=== PATIENT | male | born 1970 | race Caucasian/White ===

== ENCOUNTER 2018-07-27 03:18 | Inpatient (IN) | payer SELFPAY ==
[2018-07-27] MEDS ORDERED: Insulin Regular, Human 100 Units/ML 3 ML Vial IVPUSH ONE (03:55)
[2018-07-27] MEDS ORDERED: Sodium Chloride 0.9% 1,000 ML IV ONE (03:55)
[2018-07-27 04:40] LABS: CHLORIDE,CL 96 mmol/L (98-107); SODIUM,NA 130 mmol/L (136-145)
[2018-07-27 04:45] LABS: ANION GAP 19.7 mmol/L (10-20)
[2018-07-27] MEDS: Sodium Chloride 0.9% with KCl 1,000 ML IV SCH ×2 (05:39→11:43)
--- NOTE | 2018-07-27 05:42 | EDM.PDOC ---
ED HPI GENERAL MEDICAL PROBLEM - General Chief Complaint: General Stated Complaint: hyperglycemia,chest tightness Time Seen by Provider: 07/27/18 03:40 Source of Information: Reports: Patient History Limitations: Reports: No Limitations - History of Present Illness INITIAL COMMENTS - FREE TEXT/NARRATIVE: Pt. presents to ER with complaints of fatigue and elevated blood glucose. States that his blood sugar was normal yesterday morning at 130mg/dl. He states that he has been taking his insulin. He complains that he began feeling thirsty last evening and woke up with nausea and vomiting. He states that he last A1C was 12. He is on 70/30 twice daily. He states that he moved here recently from [place], [place]. He also stated that he was type 1 diabetic, but after reviewing his clinic chart, it was noted that he was type 2. The chart also started that he had been on cardiac rehab. After questioning him regarding this, he admitted he had a history of IN previously. He started earlier he had no other PMH. He states that he was experiencing some chest pain this AM as well. It is located in his anterior chest, is respirophasic, and worse with movement. Denies radiation into jaw, arms, neck or back. Onset Date: 07/26/18 Location: Reports: Chest, Generalized Associated Symptoms: Reports: Malaise, Nausea/Vomiting Chest Pain Score (Numeric/FACES): 9 - Related Data Allergies Allergy/AdvReac Type Severity Reaction Status Date / Time bee venom protein (honey bee) Allergy Anaphylactic Verified 07/27/18 03:57 Shock No Known Drug Allergies Allergy Other Verified 07/27/18 03:57 Home Meds: Home Meds Gabapentin [Neurontin] 300 mg PO TID 07/27/18 [History] Insulin NPH/Insulin Reg,Human [HumuLIN 70-30] 20 units SQ BIDMEALS 07/27/18 [ History] Past Medical History Cardiovascular History: Reports: High Cholesterol Endocrine/Metabolic History: Reports: Diabetes, Type I - Past Surgical History Male Surgical History: Reports: Other (See Below) Other Male Surgeries/Procedures: 3/4 of scrotum removed due to infection. Social & Family History - Tobacco Use Smoking Status *Q: Current Every Day Smoker Years of Tobacco use: 20 Packs/Tins Daily: 0.5 - Recreational Drug Use Recreational Drug Use: No ED ROS GENERAL - Review of Systems Review Of Systems: See Below Constitutional: Reports: Malaise, Fatigue HEENT: Reports: No Symptoms Respiratory: Reports: Pleuritic Chest Pain Cardiovascular: Reports: Chest Pain Endocrine: Reports: No Symptoms GI/Abdominal: Reports: No Symptoms : Reports: No Symptoms Musculoskeletal: Reports: No Symptoms Skin: Reports: No Symptoms Neurological: Reports: No Symptoms Psychiatric: Reports: No Symptoms Hematologic/Lymphatic: Reports: No Symptoms Immunologic: Reports: No Symptoms ED EXAM, GENERAL - Physical Exam Exam: See Below Exam Limited By: No Limitations General Appearance: Alert, WD/WN, No Apparent Distress Eye Exam: Bilateral Eye: EOMI, Normal Fundi, Normal Inspection, PERRL Throat/Mouth: Normal Inspection, Normal Lips, Normal Teeth, Normal Gums, Normal Oropharynx, Normal Voice, No Airway Compromise Head: Atraumatic, Normocephalic Neck: Normal Inspection, Supple, Non-Tender, Full Range of Motion Respiratory/Chest: No Respiratory Distress, Lungs Clear, Normal Breath Sounds, No Accessory Muscle Use, Chest Non-Tender Cardiovascular: Normal Peripheral Pulses, Regular Rate, Rhythm, No Edema, No Gallop, No JVD, No Murmur, No Rub GI/Abdominal: Normal Bowel Sounds, Soft, Non-Tender, No Organomegaly, No Distention, No Abnormal Bruit, No Mass (Male) Exam: Deferred Rectal (Males) Exam: Deferred Back Exam: Normal Inspection, Full Range of Motion, NT Extremities: Normal Inspection, Normal Range of Motion, Non-Tender, Normal Capillary Refill, No Pedal Edema Neurological: Alert, Oriented, CN II-XII Intact, Normal Cognition, Normal Gait, Normal Reflexes, No Motor/Sensory Deficits Psychiatric: Normal Affect, Normal Mood Skin Exam: Warm, Dry, Intact, Normal Color, No Rash Lymphatic: No Adenopathy EKG INTERPRETATION Rhythm: NSR Orion: Normal P-Wave: Present QRS: Normal ST-T: Normal QT: Normal Course - Vital Signs Last Recorded V/S: Last Vital Signs Temp 36.6 C 07/27/18 03:31 Pulse 113 H 07/27/18 03:31 Resp 18 07/27/18 03:31 BP 157/98 H 07/27/18 03:31 Pulse Ox 97 07/27/18 03:31 - Orders/Labs/Meds Orders: Active Orders 24 hr Category Date Time Status Patient Status [ADT] Routine ADT 07/27/18 05:06 Active Blood Glucose Check, Bedside [RC] ONETIME Care 07/27/18 04:43 Active EKG Documentation Completion [RC] STAT Care 07/27/18 03:53 Active Insulin Regular, Human [HumuLIN R] 100 unit Med 07/27/18 05:15 Active Sodium Chloride 0.9% [Normal Saline] 99 ml IV TITRATE Sodium Chloride 0.9% [Saline Flush] Med 07/27/18 03:53 Active 10 ml FLUSH ASDIRECTED PRN Sodium Chloride 0.9% with KCl [Normal Saline with 40 Med 07/27/18 05:15 Active mEq KCl] 1,000 ml IV ASDIRECTED Peripheral IV Insertion Adult [OM.PC] Routine Oth 07/27/18 03:54 Ordered Medication Orders Insulin Human Regular 100 unit (/ Sodium Chloride) 100 mls @ 10.2 mls/hr IV TITRATE WILFRED; Protocol Last Admin: 07/27/18 05:43 Dose: 0.1 units/kg/hr, 10.2 mls/hr Potassium Chloride/Sodium Chloride (Normal Saline With 40 Meq Kcl) 1,000 mls @ 150 mls/hr IV ASDIRECTED WILFRED Last Admin: 07/27/18 05:39 Dose: 150 mls/hr Sodium Chloride (Saline Flush) 10 ml FLUSH ASDIRECTED PRN PRN Reason: Keep Vein Open Labs: Laboratory Tests 07/27/18 07/27/18 07/27/18 Range/Units 03:42 03:43 03:43 WBC (4.0-10.0) x10^3/uL RBC (4.5-6.0) x10^6/uL Hgb (14.0-18.0) g/dL Hct (40.0-52.0) % MCV (78.0-93.0) fL MCH (26.0-32.0) pg MCHC (32.0-36.0) g/dL RDW Coeff of Myrna (10.0-15.0) % Plt Count (130-400) x10^3/uL Neut % (Auto) (50.0-80.0) % Lymph % (Auto) (25.0-50.0) % [place] % (Auto) (2.0-11.0) % Eos % (Auto) (0.0-4.0) % Baso % (Auto) (0.2-1.2) % PT (9.6-11.4) SEC INR (2.0-3.5) POC ABG pH (7.35-7.45) POC ABG pCO2 (35-45) mmHG POC ABG pO2 (80-105) mmHG POC ABG HCO3 (22-26) mmol/L POC ABG Total CO2 (23-27) mmol/L POC ABG O2 Sat (95-98) % POC ABG Base Excess (-2-3) mmol/L POC FiO2 Sodium (136-145) mmol/L Potassium (3.5-5.1) mmol/L Chloride (98-107) mmol/L Carbon Dioxide (21-32) mmol/L Anion Gap (10-20) mmol/L BUN (7-18) mg/dL Creatinine (0.70-1.30) mg/dL Est Cr Clr Drug Dosing mL/min Estimated GFR (MDRD) Glucose (74-106) mg/dL POC Glucose > 500 H* (74-106) mg/dL Lactic Acid (0.4-2.0) mmol/L Calcium (8.5-10.1) mg/dL Corrected Calcium (8.5-10.1) mg/dL Phosphorus (2.6-4.7) mg/dL Magnesium (1.8-2.4) mg/dL Total Bilirubin (0.2-1.0) mg/dL AST (15-37) U/L ALT (16-63) U/L Alkaline Phosphatase (46-116) U/L Troponin I (<=0.056) ng/mL C-Reactive Protein (<=0.9) mg/dL Total Protein (6.4-8.2) g/dL Albumin (3.4-5.0) g/dL Globulin Albumin/Globulin Ratio POC Result Comm Urine Color Yellow (YELLOW) Urine Appearance Clear (CLEAR) Urine pH 5.5 (5.0-8.0) Ur Specific West <=1.005 Urine Protein Negative (NEGATIVE) mg/dL Urine Glucose (UA) 500 H (NEGATIVE) mg/dL Urine Ketones Negative (NEGATIVE) mg/dL Urine Occult Blood Negative (NEGATIVE) Urine Nitrite Negative (NEGATIVE) Urine Bilirubin Negative (NEGATIVE) Urine Urobilinogen 0.2 (0.2) EU/dL Ur Leukocyte Esterase Negative (NEGATIVE) Urine RBC 0-5 (NOT SEEN) /HPF Urine WBC 0-5 (NOT SEEN) /HPF Ur Squamous Epith Cells Not seen (NEGATIVE) /HPF Urine Bacteria Not seen (NEGATIVE) /HPF Urine Mucus Not seen (NEGATIVE) /LPF Urine Opiates Screen Negative (NEAGTIVE) Ur Buprenorphine Scrn Negative (NEGATIVE) Ur Oxycodone Screen Negative (NEGATIVE) Urine Methadone Screen Negative (NEGATIVE) Ur Barbiturates Screen Negative (NEGATIVE) Ur Tricyclics Screen Negative (NEGATIVE) Ur Amphetamine Screen Negative (NEGATIVE) U Methamphetamines Scrn Negative (NEGATIVE) Urine MDMA Screen Negative (NEGATIVE) U Benzodiazepines Scrn Negative (NEGATIVE) U Cocaine Metab Screen Negative (NEGATIVE) U Marijuana (THC) Screen Negative (NEGATIVE) 07/27/18 07/27/18 07/27/18 Range/Units 03:54 03:54 03:54 WBC 11.1 H (4.0-10.0) x10^3/uL RBC 5.76 (4.5-6.0) x10^6/uL Hgb 17.6 (14.0-18.0) g/dL Hct 48.7 (40.0-52.0) % MCV 84.5 (78.0-93.0) fL MCH 30.6 (26.0-32.0) pg MCHC 36.1 H (32.0-36.0) g/dL RDW Coeff of Myrna 13.1 (10.0-15.0) % Plt Count 257 (130-400) x10^3/uL Neut % (Auto) 74.6 (50.0-80.0) % Lymph % (Auto) 15.9 L (25.0-50.0) % [place] % (Auto) 7.7 (2.0-11.0) % Eos % (Auto) 1.4 (0.0-4.0) % Baso % (Auto) 0.4 (0.2-1.2) % PT 9.9 (9.6-11.4) SEC INR 0.9 L (2.0-3.5) POC ABG pH (7.35-7.45) POC ABG pCO2 (35-45) mmHG POC ABG pO2 (80-105) mmHG POC ABG HCO3 (22-26) mmol/L POC ABG Total CO2 (23-27) mmol/L POC ABG O2 Sat (95-98) % POC ABG Base Excess (-2-3) mmol/L POC FiO2 Sodium 130 L (136-145) mmol/L Potassium 3.7 (3.5-5.1) mmol/L Chloride 96 L (98-107) mmol/L Carbon Dioxide 18 L (21-32) mmol/L Anion Gap 19.7 (10-20) mmol/L BUN 11 (7-18) mg/dL Creatinine 1.6 H (0.70-1.30) mg/dL Est Cr Clr Drug Dosing 70.07 mL/min Estimated GFR (MDRD) 47 Glucose 666 H* (74-106) mg/dL POC Glucose (74-106) mg/dL Lactic Acid (0.4-2.0) mmol/L Calcium 9.3 (8.5-10.1) mg/dL Corrected Calcium 9.78 (8.5-10.1) mg/dL Phosphorus 3.1 (2.6-4.7) mg/dL Magnesium 1.7 L (1.8-2.4) mg/dL Total Bilirubin 0.4 (0.2-1.0) mg/dL AST 14 L (15-37) U/L ALT 30 (16-63) U/L Alkaline Phosphatase 86 (46-116) U/L Troponin I < 0.017 (<=0.056) ng/mL C-Reactive Protein 0.8 (<=0.9) mg/dL Total Protein 7.5 (6.4-8.2) g/dL Albumin 3.4 (3.4-5.0) g/dL Globulin 4.1 Albumin/Globulin Ratio 0.83 POC Result Comm Urine Color (YELLOW) Urine Appearance (CLEAR) Urine pH (5.0-8.0) Ur Specific West Urine Protein (NEGATIVE) mg/dL Urine Glucose (UA) (NEGATIVE) mg/dL Urine Ketones (NEGATIVE) mg/dL Urine Occult Blood (NEGATIVE) Urine Nitrite (NEGATIVE) Urine Bilirubin (NEGATIVE) Urine Urobilinogen (0.2) EU/dL Ur Leukocyte Esterase (NEGATIVE) Urine RBC (NOT SEEN) /HPF Urine WBC (NOT SEEN) /HPF Ur Squamous Epith Cells (NEGATIVE) /HPF Urine Bacteria (NEGATIVE) /HPF Urine Mucus (NEGATIVE) /LPF Urine Opiates Screen (NEAGTIVE) Ur Buprenorphine Scrn (NEGATIVE) Ur Oxycodone Screen (NEGATIVE) Urine Methadone Screen (NEGATIVE) Ur Barbiturates Screen (NEGATIVE) Ur Tricyclics Screen (NEGATIVE) Ur Amphetamine Screen (NEGATIVE) U Methamphetamines Scrn (NEGATIVE) Urine MDMA Screen (NEGATIVE) U Benzodiazepines Scrn (NEGATIVE) U Cocaine Metab Screen (NEGATIVE) U Marijuana (THC) Screen (NEGATIVE) 07/27/18 07/27/18 Range/Units 03:54 04:39 WBC (4.0-10.0) x10^3/uL RBC (4.5-6.0) x10^6/uL Hgb (14.0-18.0) g/dL Hct (40.0-52.0) % MCV (78.0-93.0) fL MCH (26.0-32.0) pg MCHC (32.0-36.0) g/dL RDW Coeff of Myrna (10.0-15.0) % Plt Count (130-400) x10^3/uL Neut % (Auto) (50.0-80.0) % Lymph % (Auto) (25.0-50.0) % [place] % (Auto) (2.0-11.0) % Eos % (Auto) (0.0-4.0) % Baso % (Auto) (0.2-1.2) % PT (9.6-11.4) SEC INR (2.0-3.5) POC ABG pH 7.298 L* (7.35-7.45) POC ABG pCO2 36 (35-45) mmHG POC ABG pO2 80 (80-105) mmHG POC ABG HCO3 18 L (22-26) mmol/L POC ABG Total CO2 19 L (23-27) mmol/L POC ABG O2 Sat 94 L (95-98) % POC ABG Base Excess -9 L (-2-3) mmol/L POC FiO2 0.21 Sodium (136-145) mmol/L Potassium (3.5-5.1) mmol/L Chloride (98-107) mmol/L Carbon Dioxide (21-32) mmol/L Anion Gap (10-20) mmol/L BUN (7-18) mg/dL Creatinine (0.70-1.30) mg/dL Est Cr Clr Drug Dosing mL/min Estimated GFR (MDRD) Glucose (74-106) mg/dL POC Glucose (74-106) mg/dL Lactic Acid 7.8 H* (0.4-2.0) mmol/L Calcium (8.5-10.1) mg/dL Corrected Calcium (8.5-10.1) mg/dL Phosphorus (2.6-4.7) mg/dL Magnesium (1.8-2.4) mg/dL Total Bilirubin (0.2-1.0) mg/dL AST (15-37) U/L ALT (16-63) U/L Alkaline Phosphatase (46-116) U/L Troponin I (<=0.056) ng/mL C-Reactive Protein (<=0.9) mg/dL Total Protein (6.4-8.2) g/dL Albumin (3.4-5.0) g/dL Globulin Albumin/Globulin Ratio POC Result Comm Called critical res Urine Color (YELLOW) Urine Appearance (CLEAR) Urine pH (5.0-8.0) Ur Specific West Urine Protein (NEGATIVE) mg/dL Urine Glucose (UA) (NEGATIVE) mg/dL Urine Ketones (NEGATIVE) mg/dL Urine Occult Blood (NEGATIVE) Urine Nitrite (NEGATIVE) Urine Bilirubin (NEGATIVE) Urine Urobilinogen (0.2) EU/dL Ur Leukocyte Esterase (NEGATIVE) Urine RBC (NOT SEEN) /HPF Urine WBC (NOT SEEN) /HPF Ur Squamous Epith Cells (NEGATIVE) /HPF Urine Bacteria (NEGATIVE) /HPF Urine Mucus (NEGATIVE) /LPF Urine Opiates Screen (NEAGTIVE) Ur Buprenorphine Scrn (NEGATIVE) Ur Oxycodone Screen (NEGATIVE) Urine Methadone Screen (NEGATIVE) Ur Barbiturates Screen (NEGATIVE) Ur Tricyclics Screen (NEGATIVE) Ur Amphetamine Screen (NEGATIVE) U Methamphetamines Scrn (NEGATIVE) Urine MDMA Screen (NEGATIVE) U Benzodiazepines Scrn (NEGATIVE) U Cocaine Metab Screen (NEGATIVE) U Marijuana (THC) Screen (NEGATIVE) Meds: Medications Generic Name Dose Route Start Last Admin Trade Name Freq PRN Reason Stop Dose Admin Insulin Human Regular 100 unit 100 mls @ 10.2 mls/hr 07/27/18 05:15 07/27/18 05:43 / Sodium Chloride IV 0.1 units/kg/hr TITRATE WILFRED 10.2 mls/hr Administration Protocol 0.1 UNITS/KG/HR Potassium Chloride/Sodium Chloride 1,000 mls @ 150 mls/hr 07/27/18 05:15 05:39 Normal Saline With 40 Meq Kcl IV 150 mls/hr ASDIRECTED WILFRED Administration Sodium Chloride 10 ml 07/27/18 03:53 Saline Flush FLUSH ASDIRECTED PRN Keep Vein Open Discontinued Medications Generic Name Dose Route Start Last Admin Trade Name Freq PRN Reason Stop Dose Admin Sodium Chloride 1,000 mls @ 1,000 mls/hr 07/27/18 03:55 07/27/18 03:55 Normal Saline IV 07/27/18 04:54 1,000 mls/hr .BOLUS ONE Administration Insulin Human Regular 10 unit 07/27/18 03:55 07/27/18 04:03 Humulin R IVPUSH 07/27/18 03:56 10 units ONETIME ONE Administration Ondansetron HCl 4 mg 07/27/18 05:58 Zofran IVPUSH 07/27/18 05:59 ONETIME ONE - Re-Assessments/Exams Free Text/Narrative Re-Assessment/Exam: 07/27/18 05:48 IV access was established. He was given 1L of NS and 10 units of regular insulin. He was started on an insulin drip at 0.1mg/kg/hr. Initial blood glucose was 666mg/dl. His K+ was 3.7. In anticipation of insulin induced hypokalemia, the pt. was started on NS with 40mEq of KCl at 150ml/hour. Departure - Departure Time of Disposition: 05:52 Disposition: Admitted As Inpatient 66 Clinical Impression: DKA (diabetic ketoacidoses) - Discharge Information - Problem List Review Problem List Initiated/Reviewed/Updated: Yes - My Orders Last 24 Hours: My Active Orders 07/27/18 03:53 EKG Documentation Completion [RC] STAT Sodium Chloride 0.9% [Saline Flush] 10 ml FLUSH ASDIRECTED PRN 07/27/18 03:54 Peripheral IV Insertion Adult [OM.PC] Routine 07/27/18 04:43 Blood Glucose Check, Bedside [RC] ONETIME 07/27/18 05:06 Patient Status [ADT] Routine 07/27/18 05:15 Insulin Regular, Human [HumuLIN R] 100 unit Sodium Chloride 0.9% [Normal Saline] 99 ml IV TITRATE Sodium Chloride 0.9% with KCl [Normal Saline with 40 mEq KCl] 1,000 ml IV ASDIRECTED - Assessment/Plan Last 24 Hours: My Active Orders 07/27/18 03:53 EKG Documentation Completion [RC] STAT Sodium Chloride 0.9% [Saline Flush] 10 ml FLUSH ASDIRECTED PRN 07/27/18 03:54 Peripheral IV Insertion Adult [OM.PC] Routine 07/27/18 04:43 Blood Glucose Check, Bedside [RC] ONETIME 07/27/18 05:06 Patient Status [ADT] Routine 07/27/18 05:15 Insulin Regular, Human [HumuLIN R] 100 unit Sodium Chloride 0.9% [Normal Saline] 99 ml IV TITRATE Sodium Chloride 0.9% with KCl [Normal Saline with 40 mEq KCl] 1,000 ml IV ASDIRECTED Plan: Pt. meets acute criteria for admission. He will be admitted to med/surg. Dr. Garnett will admit. He is an unassigned patient. Bedside glucose every 2 hours. His 1 hour repeat was still greater than 500mg/dl. Lovenox for DVT prophylaxis. Will continue tele due to cardiac history and complaints of chest pain. Will attempt to obtain medical records from [place], [place]. Will treat nausea with zofran. He is a code 1.
[2018-07-27] MEDS ORDERED: Ondansetron 4 MG/2 ML SDV IVPUSH ONE (05:58)
[2018-07-27 11:24] LABS: CHLORIDE,CL 105 mmol/L (98-107); SODIUM,NA 136 mmol/L (136-145)
[2018-07-27 11:25] LABS: ANION GAP 9.4 mmol/L (10-20)
[2018-07-27] MEDS: Enoxaparin 40 MG/0.4 ML Syringe SUBCUT SCH (11:38)
--- NOTE | 2018-07-27 14:19 | PCM.HP ---
H&P History of Present Illness - General Date of Service: 07/27/18 Admit Problem/Dx: Admission Diagnosis/Problem Admission Diagnosis/Problem Diabetic ketoacidosis - History of Present Illness Initial Comments - Free Text/Narative: History: Patient was admitted late last night with weakness. Afebrile. No infection seen by CRP or basic exam. Sugar was quite high at 600s. Mild acidosis pH 7.3 anion gap mildly elevated. No gross ketones in urine. Admitted for DKA started on insulin drip plus saline bolus. Patient's unsure of trigger for this. He states he hasn't missed any insulin recently. He states his sugars usually run low to mid 100s at home, however the same time he states his last A1c was 12+ less than three months ago. He describes possible mild cardiac history. He denies ever having a left heart cath. Subsequently totally may have had a small heart attack at some time and that he may have had some sort of follow-up stress test or similar which appeared normal. EKG and trop were normal last night home meds: 70/30 20U bid Gabapentin NKDA SH: Smokes 1/2ppd, was living in [place] then [place] and now [place], doesn't have local doc yet. Family history: Noncontributory Review of systems. Denies fever denies vomiting denies abdominal pain. Was having very brief chest pain which is gone now. Denies dyspnea denies dysuria Physical exam: Blood pressure 150/100 pulse 100. Afebrile. Alert oriented sitting in bed in no acute distress. Heart and lungs to auscultation abdomen soft nontender extremities warm well perfused without edema. Assessment and plan. Mild DKA. Has resolved with brief course of insulin and IV fluids here. Blood sugars less than 200, acidemia has resolved as well. Exact etiology is unclear. Could be noncompliance versus underdosing of insulin. I don't see any cardiac, acute abdomen or acute infectious contribution at this time. We will stop IV fluids stop IV insulin. We'll resume home 7030 dose to see where get with his blood sugars and adjust accordingly. He'll need to follow-up a primary clinic. Sugars sound uncontrolled at baseline if his last A1c was greater than 12. Monitor his hypertension for now. Again needs to follow-up in clinic for fasting blood work etc. He does still smoke as well. Chest Pain Score (Numeric/FACES): 8 - Related Data Allergies/Adverse Reactions: Allergies Allergy/AdvReac Type Severity Reaction Status Date / Time bee venom protein (honey bee) Allergy Severe Anaphylactic Verified 07/27/18 09: 07 Shock No Known Drug Allergies Allergy Other Verified 07/27/18 03:57 Home Medications: Home Meds Gabapentin [Neurontin] 300 mg PO TID 07/27/18 [History] Insulin NPH/Insulin Reg,Human [HumuLIN 70-30] 20 units SQ BIDMEALS 07/27/18 [ History] Past Medical History Cardiovascular History: Reports: High Cholesterol Endocrine/Metabolic History: Reports: Diabetes, Type I - Past Surgical History Male Surgical History: Reports: Other (See Below) Other Male Surgeries/Procedures: 3/ of scrotum removed due to infection. Social & Family History - Tobacco Use Smoking Status *Q: Former Smoker Years of Tobacco use: 20 Packs/Tins Daily: 0.5 Used Tobacco, but Quit: No Tobacco Use Comment: vape use Second Hand Smoke Exposure: Yes - Caffeine Use Caffeine Use: Reports: None - Recreational Drug Use Recreational Drug Use: No H&P Review of Systems - Review of Systems: Review Of Systems: See Below Exam - Exam Exam: See Below - Vital Signs Vital Signs: Last Vital Signs Temp 36.4 C 07/27/18 13:07 Pulse 84 07/27/18 13:07 Resp 16 07/27/18 13:07 BP 143/87 H 07/27/18 13:07 Pulse Ox 98 07/27/18 13:07 Weight: 102.25 kg - Patient Data Lab Results Last 24 hrs: Laboratory Results - last 24 hr 07/27/18 07/27/18 07/27/18 Range/Units 03:42 03:43 03:43 WBC (4.0-10.0) x10^3/uL RBC (4.5-6.0) x10^6/uL Hgb (14.0-18.0) g/dL Hct (40.0-52.0) % MCV (78.0-93.0) fL MCH (26.0-32.0) pg MCHC (32.0-36.0) g/dL RDW Coeff of Myrna (10.0-15.0) % Plt Count (130-400) x10^3/uL Neut % (Auto) (50.0-80.0) % Lymph % (Auto) (25.0-50.0) % Carter % (Auto) (2.0-11.0) % Eos % (Auto) (0.0-4.0) % Baso % (Auto) (0.2-1.2) % PT (9.6-11.4) SEC INR (2.0-3.5) POC ABG pH (7.35-7.45) POC ABG pCO2 (35-45) mmHG POC ABG pO2 (80-105) mmHG POC ABG HCO3 (22-26) mmol/L POC ABG Total CO2 (23-27) mmol/L POC ABG O2 Sat (95-98) % POC ABG Base Excess (-2-3) mmol/L POC FiO2 Sodium (136-145) mmol/L Potassium (3.5-5.1) mmol/L Chloride (98-107) mmol/L Carbon Dioxide (21-32) mmol/L Anion Gap (10-20) mmol/L BUN (7-18) mg/dL Creatinine (0.70-1.30) mg/dL Est Cr Clr Drug Dosing mL/min Estimated GFR (MDRD) Glucose (74-106) mg/dL POC Glucose > 500 H* (74-106) mg/dL Lactic Acid (0.4-2.0) mmol/L Calcium (8.5-10.1) mg/dL Corrected Calcium (8.5-10.1) mg/dL Phosphorus (2.6-4.7) mg/dL Magnesium (1.8-2.4) mg/dL Total Bilirubin (0.2-1.0) mg/dL AST (15-37) U/L ALT (16-63) U/L Alkaline Phosphatase (46-116) U/L Troponin I (<=0.056) ng/mL C-Reactive Protein (<=0.9) mg/dL Total Protein (6.4-8.2) g/dL Albumin (3.4-5.0) g/dL Globulin Albumin/Globulin Ratio POC Result Comm Urine Color Yellow (YELLOW) Urine Appearance Clear (CLEAR) Urine pH 5.5 (5.0-8.0) Ur Specific [place] <=1.005 Urine Protein Negative (NEGATIVE) mg/dL Urine Glucose (UA) 500 H (NEGATIVE) mg/dL Urine Ketones Negative (NEGATIVE) mg/dL Urine Occult Blood Negative (NEGATIVE) Urine Nitrite Negative (NEGATIVE) Urine Bilirubin Negative (NEGATIVE) Urine Urobilinogen 0.2 (0.2) EU/dL Ur Leukocyte Esterase Negative (NEGATIVE) Urine RBC 0-5 (NOT SEEN) /HPF Urine WBC 0-5 (NOT SEEN) /HPF Ur Squamous Epith Cells Not seen (NEGATIVE) /HPF Urine Bacteria Not seen (NEGATIVE) /HPF Urine Mucus Not seen (NEGATIVE) /LPF Urine Opiates Screen Negative (NEAGTIVE) Ur Buprenorphine Scrn Negative (NEGATIVE) Ur Oxycodone Screen Negative (NEGATIVE) Urine Methadone Screen Negative (NEGATIVE) Ur Barbiturates Screen Negative (NEGATIVE) Ur Tricyclics Screen Negative (NEGATIVE) Ur Amphetamine Screen Negative (NEGATIVE) U Methamphetamines Scrn Negative (NEGATIVE) Urine MDMA Screen Negative (NEGATIVE) U Benzodiazepines Scrn Negative (NEGATIVE) U Cocaine Metab Screen Negative (NEGATIVE) U Marijuana (THC) Screen Negative (NEGATIVE) 07/27/18 07/27/18 07/27/18 Range/Units 03:54 03:54 03:54 WBC 11.1 H (4.0-10.0) x10^3/uL RBC 5.76 (4.5-6.0) x10^6/uL Hgb 17.6 (14.0-18.0) g/dL Hct 48.7 (40.0-52.0) % MCV 84.5 (78.0-93.0) fL MCH 30.6 (26.0-32.0) pg MCHC 36.1 H (32.0-36.0) g/dL RDW Coeff of Myrna 13.1 (10.0-15.0) % Plt Count 257 (130-400) x10^3/uL Neut % (Auto) 74.6 (50.0-80.0) % Lymph % (Auto) 15.9 L (25.0-50.0) % Carter % (Auto) 7.7 (2.0-11.0) % Eos % (Auto) 1.4 (0.0-4.0) % Baso % (Auto) 0.4 (0.2-1.2) % PT 9.9 (9.6-11.4) SEC INR 0.9 L (2.0-3.5) POC ABG pH (7.35-7.45) POC ABG pCO2 (35-45) mmHG POC ABG pO2 (80-105) mmHG POC ABG HCO3 (22-26) mmol/L POC ABG Total CO2 (23-27) mmol/L POC ABG O2 Sat (95-98) % POC ABG Base Excess (-2-3) mmol/L POC FiO2 Sodium 130 L (136-145) mmol/L Potassium 3.7 (3.5-5.1) mmol/L Chloride 96 L (98-107) mmol/L Carbon Dioxide 18 L (21-32) mmol/L Anion Gap 19.7 (10-20) mmol/L BUN 11 (7-18) mg/dL Creatinine 1.6 H (0.70-1.30) mg/dL Est Cr Clr Drug Dosing 70.07 mL/min Estimated GFR (MDRD) 47 Glucose 666 H* (74-106) mg/dL POC Glucose (74-106) mg/dL Lactic Acid (0.4-2.0) mmol/L Calcium 9.3 (8.5-10.1) mg/dL Corrected Calcium 9.78 (8.5-10.1) mg/dL Phosphorus 3.1 (2.6-4.7) mg/dL Magnesium 1.7 L (1.8-2.4) mg/dL Total Bilirubin 0.4 (0.2-1.0) mg/dL AST 14 L (15-37) U/L ALT 30 (16-63) U/L Alkaline Phosphatase 86 (46-116) U/L Troponin I < 0.017 (<=0.056) ng/mL C-Reactive Protein 0.8 (<=0.9) mg/dL Total Protein 7.5 (6.4-8.2) g/dL Albumin 3.4 (3.4-5.0) g/dL Globulin 4.1 Albumin/Globulin Ratio 0.83 POC Result Comm Urine Color (YELLOW) Urine Appearance (CLEAR) Urine pH (5.0-8.0) Ur Specific [place] Urine Protein (NEGATIVE) mg/dL Urine Glucose (UA) (NEGATIVE) mg/dL Urine Ketones (NEGATIVE) mg/dL Urine Occult Blood (NEGATIVE) Urine Nitrite (NEGATIVE) Urine Bilirubin (NEGATIVE) Urine Urobilinogen (0.2) EU/dL Ur Leukocyte Esterase (NEGATIVE) Urine RBC (NOT SEEN) /HPF Urine WBC (NOT SEEN) /HPF Ur Squamous Epith Cells (NEGATIVE) /HPF Urine Bacteria (NEGATIVE) /HPF Urine Mucus (NEGATIVE) /LPF Urine Opiates Screen (NEAGTIVE) Ur Buprenorphine Scrn (NEGATIVE) Ur Oxycodone Screen (NEGATIVE) Urine Methadone Screen (NEGATIVE) Ur Barbiturates Screen (NEGATIVE) Ur Tricyclics Screen (NEGATIVE) Ur Amphetamine Screen (NEGATIVE) U Methamphetamines Scrn (NEGATIVE) Urine MDMA Screen (NEGATIVE) U Benzodiazepines Scrn (NEGATIVE) U Cocaine Metab Screen (NEGATIVE) U Marijuana (THC) Screen (NEGATIVE) 07/27/18 07/27/18 07/27/18 Range/Units 03:54 04:39 05:35 WBC (4.0-10.0) x10^3/uL RBC (4.5-6.0) x10^6/uL Hgb (14.0-18.0) g/dL Hct (40.0-52.0) % MCV (78.0-93.0) fL MCH (26.0-32.0) pg MCHC (32.0-36.0) g/dL RDW Coeff of Myrna (10.0-15.0) % Plt Count (130-400) x10^3/uL Neut % (Auto) (50.0-80.0) % Lymph % (Auto) (25.0-50.0) % Carter % (Auto) (2.0-11.0) % Eos % (Auto) (0.0-4.0) % Baso % (Auto) (0.2-1.2) % PT (9.6-11.4) SEC INR (2.0-3.5) POC ABG pH 7.298 L* (7.35-7.45) POC ABG pCO2 36 (35-45) mmHG POC ABG pO2 80 (80-105) mmHG POC ABG HCO3 18 L (22-26) mmol/L POC ABG Total CO2 19 L (23-27) mmol/L POC ABG O2 Sat 94 L (95-98) % POC ABG Base Excess -9 L (-2-3) mmol/L POC FiO2 0.21 Sodium (136-145) mmol/L Potassium (3.5-5.1) mmol/L Chloride (98-107) mmol/L Carbon Dioxide (21-32) mmol/L Anion Gap (10-20) mmol/L BUN (7-18) mg/dL Creatinine (0.70-1.30) mg/dL Est Cr Clr Drug Dosing mL/min Estimated GFR (MDRD) Glucose (74-106) mg/dL POC Glucose > 500 H* (74-106) mg/dL Lactic Acid 7.8 H* (0.4-2.0) mmol/L Calcium (8.5-10.1) mg/dL Corrected Calcium (8.5-10.1) mg/dL Phosphorus (2.6-4.7) mg/dL Magnesium (1.8-2.4) mg/dL Total Bilirubin (0.2-1.0) mg/dL AST (15-37) U/L ALT (16-63) U/L Alkaline Phosphatase (46-116) U/L Troponin I (<=0.056) ng/mL C-Reactive Protein (<=0.9) mg/dL Total Protein (6.4-8.2) g/dL Albumin (3.4-5.0) g/dL Globulin Albumin/Globulin Ratio POC Result Comm Called critical res Urine Color (YELLOW) Urine Appearance (CLEAR) Urine pH (5.0-8.0) Ur Specific [place] Urine Protein (NEGATIVE) mg/dL Urine Glucose (UA) (NEGATIVE) mg/dL Urine Ketones (NEGATIVE) mg/dL Urine Occult Blood (NEGATIVE) Urine Nitrite (NEGATIVE) Urine Bilirubin (NEGATIVE) Urine Urobilinogen (0.2) EU/dL Ur Leukocyte Esterase (NEGATIVE) Urine RBC (NOT SEEN) /HPF Urine WBC (NOT SEEN) /HPF Ur Squamous Epith Cells (NEGATIVE) /HPF Urine Bacteria (NEGATIVE) /HPF Urine Mucus (NEGATIVE) /LPF Urine Opiates Screen (NEAGTIVE) Ur Buprenorphine Scrn (NEGATIVE) Ur Oxycodone Screen (NEGATIVE) Urine Methadone Screen (NEGATIVE) Ur Barbiturates Screen (NEGATIVE) Ur Tricyclics Screen (NEGATIVE) Ur Amphetamine Screen (NEGATIVE) U Methamphetamines Scrn (NEGATIVE) Urine MDMA Screen (NEGATIVE) U Benzodiazepines Scrn (NEGATIVE) U Cocaine Metab Screen (NEGATIVE) U Marijuana (THC) Screen (NEGATIVE) 07/27/18 07/27/18 07/27/18 Range/Units 07:55 09:43 10:55 WBC (4.0-10.0) x10^3/uL RBC (4.5-6.0) x10^6/uL Hgb (14.0-18.0) g/dL Hct (40.0-52.0) % MCV (78.0-93.0) fL MCH (26.0-32.0) pg MCHC (32.0-36.0) g/dL RDW Coeff of Myrna (10.0-15.0) % Plt Count (130-400) x10^3/uL Neut % (Auto) (50.0-80.0) % Lymph % (Auto) (25.0-50.0) % Carter % (Auto) (2.0-11.0) % Eos % (Auto) (0.0-4.0) % Baso % (Auto) (0.2-1.2) % PT (9.6-11.4) SEC INR (2.0-3.5) POC ABG pH (7.35-7.45) POC ABG pCO2 (35-45) mmHG POC ABG pO2 (80-105) mmHG POC ABG HCO3 (22-26) mmol/L POC ABG Total CO2 (23-27) mmol/L POC ABG O2 Sat (95-98) % POC ABG Base Excess (-2-3) mmol/L POC FiO2 Sodium 136 (136-145) mmol/L Potassium 4.4 (3.5-5.1) mmol/L Chloride 105 (98-107) mmol/L Carbon Dioxide 26 (21-32) mmol/L Anion Gap 9.4 L (10-20) mmol/L BUN 9 (7-18) mg/dL Creatinine 1.0 (0.70-1.30) mg/dL Est Cr Clr Drug Dosing 112.12 mL/min Estimated GFR (MDRD) > 60 Glucose 268 H (74-106) mg/dL POC Glucose 280 H 301 H (74-106) mg/dL Lactic Acid (0.4-2.0) mmol/L Calcium 9.1 (8.5-10.1) mg/dL Corrected Calcium (8.5-10.1) mg/dL Phosphorus (2.6-4.7) mg/dL Magnesium (1.8-2.4) mg/dL Total Bilirubin (0.2-1.0) mg/dL AST (15-37) U/L ALT (16-63) U/L Alkaline Phosphatase (46-116) U/L Troponin I (<=0.056) ng/mL C-Reactive Protein (<=0.9) mg/dL Total Protein (6.4-8.2) g/dL Albumin (3.4-5.0) g/dL Globulin Albumin/Globulin Ratio POC Result Comm Urine Color (YELLOW) Urine Appearance (CLEAR) Urine pH (5.0-8.0) Ur Specific [place] Urine Protein (NEGATIVE) mg/dL Urine Glucose (UA) (NEGATIVE) mg/dL Urine Ketones (NEGATIVE) mg/dL Urine Occult Blood (NEGATIVE) Urine Nitrite (NEGATIVE) Urine Bilirubin (NEGATIVE) Urine Urobilinogen (0.2) EU/dL Ur Leukocyte Esterase (NEGATIVE) Urine RBC (NOT SEEN) /HPF Urine WBC (NOT SEEN) /HPF Ur Squamous Epith Cells (NEGATIVE) /HPF Urine Bacteria (NEGATIVE) /HPF Urine Mucus (NEGATIVE) /LPF Urine Opiates Screen (NEAGTIVE) Ur Buprenorphine Scrn (NEGATIVE) Ur Oxycodone Screen (NEGATIVE) Urine Methadone Screen (NEGATIVE) Ur Barbiturates Screen (NEGATIVE) Ur Tricyclics Screen (NEGATIVE) Ur Amphetamine Screen (NEGATIVE) U Methamphetamines Scrn (NEGATIVE) Urine MDMA Screen (NEGATIVE) U Benzodiazepines Scrn (NEGATIVE) U Cocaine Metab Screen (NEGATIVE) U Marijuana (THC) Screen (NEGATIVE) 07/27/18 07/27/18 07/27/18 Range/Units 10:55 11:12 11:59 WBC (4.0-10.0) x10^3/uL RBC (4.5-6.0) x10^6/uL Hgb (14.0-18.0) g/dL Hct (40.0-52.0) % MCV (78.0-93.0) fL MCH (26.0-32.0) pg MCHC (32.0-36.0) g/dL RDW Coeff of Myrna (10.0-15.0) % Plt Count (130-400) x10^3/uL Neut % (Auto) (50.0-80.0) % Lymph % (Auto) (25.0-50.0) % Carter % (Auto) (2.0-11.0) % Eos % (Auto) (0.0-4.0) % Baso % (Auto) (0.2-1.2) % PT (9.6-11.4) SEC INR (2.0-3.5) POC ABG pH (7.35-7.45) POC ABG pCO2 (35-45) mmHG POC ABG pO2 (80-105) mmHG POC ABG HCO3 (22-26) mmol/L POC ABG Total CO2 (23-27) mmol/L POC ABG O2 Sat (95-98) % POC ABG Base Excess (-2-3) mmol/L POC FiO2 Sodium (136-145) mmol/L Potassium (3.5-5.1) mmol/L Chloride (98-107) mmol/L Carbon Dioxide (21-32) mmol/L Anion Gap (10-20) mmol/L BUN (7-18) mg/dL Creatinine (0.70-1.30) mg/dL Est Cr Clr Drug Dosing mL/min Estimated GFR (MDRD) Glucose (74-106) mg/dL POC Glucose 232 H 163 H (74-106) mg/dL Lactic Acid (0.4-2.0) mmol/L Calcium (8.5-10.1) mg/dL Corrected Calcium (8.5-10.1) mg/dL Phosphorus (2.6-4.7) mg/dL Magnesium (1.8-2.4) mg/dL Total Bilirubin (0.2-1.0) mg/dL AST (15-37) U/L ALT (16-63) U/L Alkaline Phosphatase (46-116) U/L Troponin I < 0.017 (<=0.056) ng/mL C-Reactive Protein (<=0.9) mg/dL Total Protein (6.4-8.2) g/dL Albumin (3.4-5.0) g/dL Globulin Albumin/Globulin Ratio POC Result Comm Urine Color (YELLOW) Urine Appearance (CLEAR) Urine pH (5.0-8.0) Ur Specific [place] Urine Protein (NEGATIVE) mg/dL Urine Glucose (UA) (NEGATIVE) mg/dL Urine Ketones (NEGATIVE) mg/dL Urine Occult Blood (NEGATIVE) Urine Nitrite (NEGATIVE) Urine Bilirubin (NEGATIVE) Urine Urobilinogen (0.2) EU/dL Ur Leukocyte Esterase (NEGATIVE) Urine RBC (NOT SEEN) /HPF Urine WBC (NOT SEEN) /HPF Ur Squamous Epith Cells (NEGATIVE) /HPF Urine Bacteria (NEGATIVE) /HPF Urine Mucus (NEGATIVE) /LPF Urine Opiates Screen (NEAGTIVE) Ur Buprenorphine Scrn (NEGATIVE) Ur Oxycodone Screen (NEGATIVE) Urine Methadone Screen (NEGATIVE) Ur Barbiturates Screen (NEGATIVE) Ur Tricyclics Screen (NEGATIVE) Ur Amphetamine Screen (NEGATIVE) U Methamphetamines Scrn (NEGATIVE) Urine MDMA Screen (NEGATIVE) U Benzodiazepines Scrn (NEGATIVE) U Cocaine Metab Screen (NEGATIVE) U Marijuana (THC) Screen (NEGATIVE) 07/27/18 Range/Units 12:59 WBC (4.0-10.0) x10^3/uL RBC (4.5-6.0) x10^6/uL Hgb (14.0-18.0) g/dL Hct (40.0-52.0) % MCV (78.0-93.0) fL MCH (26.0-32.0) pg MCHC (32.0-36.0) g/dL RDW Coeff of Myrna (10.0-15.0) % Plt Count (130-400) x10^3/uL Neut % (Auto) (50.0-80.0) % Lymph % (Auto) (25.0-50.0) % Carter % (Auto) (2.0-11.0) % Eos % (Auto) (0.0-4.0) % Baso % (Auto) (0.2-1.2) % PT (9.6-11.4) SEC INR (2.0-3.5) POC ABG pH (7.35-7.45) POC ABG pCO2 (35-45) mmHG POC ABG pO2 (80-105) mmHG POC ABG HCO3 (22-26) mmol/L POC ABG Total CO2 (23-27) mmol/L POC ABG O2 Sat (95-98) % POC ABG Base Excess (-2-3) mmol/L POC FiO2 Sodium (136-145) mmol/L Potassium (3.5-5.1) mmol/L Chloride (98-107) mmol/L Carbon Dioxide (21-32) mmol/L Anion Gap (10-20) mmol/L BUN (7-18) mg/dL Creatinine (0.70-1.30) mg/dL Est Cr Clr Drug Dosing mL/min Estimated GFR (MDRD) Glucose (74-106) mg/dL POC Glucose 198 H (74-106) mg/dL Lactic Acid (0.4-2.0) mmol/L Calcium (8.5-10.1) mg/dL Corrected Calcium (8.5-10.1) mg/dL Phosphorus (2.6-4.7) mg/dL Magnesium (1.8-2.4) mg/dL Total Bilirubin (0.2-1.0) mg/dL AST (15-37) U/L ALT (16-63) U/L Alkaline Phosphatase (46-116) U/L Troponin I (<=0.056) ng/mL C-Reactive Protein (<=0.9) mg/dL Total Protein (6.4-8.2) g/dL Albumin (3.4-5.0) g/dL Globulin Albumin/Globulin Ratio POC Result Comm Urine Color (YELLOW) Urine Appearance (CLEAR) Urine pH (5.0-8.0) Ur Specific [place] Urine Protein (NEGATIVE) mg/dL Urine Glucose (UA) (NEGATIVE) mg/dL Urine Ketones (NEGATIVE) mg/dL Urine Occult Blood (NEGATIVE) Urine Nitrite (NEGATIVE) Urine Bilirubin (NEGATIVE) Urine Urobilinogen (0.2) EU/dL Ur Leukocyte Esterase (NEGATIVE) Urine RBC (NOT SEEN) /HPF Urine WBC (NOT SEEN) /HPF Ur Squamous Epith Cells (NEGATIVE) /HPF Urine Bacteria (NEGATIVE) /HPF Urine Mucus (NEGATIVE) /LPF Urine Opiates Screen (NEAGTIVE) Ur Buprenorphine Scrn (NEGATIVE) Ur Oxycodone Screen (NEGATIVE) Urine Methadone Screen (NEGATIVE) Ur Barbiturates Screen (NEGATIVE) Ur Tricyclics Screen (NEGATIVE) Ur Amphetamine Screen (NEGATIVE) U Methamphetamines Scrn (NEGATIVE) Urine MDMA Screen (NEGATIVE) U Benzodiazepines Scrn (NEGATIVE) U Cocaine Metab Screen (NEGATIVE) U Marijuana (THC) Screen (NEGATIVE) Result Diagrams: 07/27/18 03:54 07/27/18 10:55 Problem List Initiated/Reviewed/Updated: Yes Orders Last 24hrs: Active Orders 24 hr Category Date Time Status Patient Status [ADT] Routine ADT 07/27/18 05:06 Active Blood Glucose Check, Bedside [RC] Q2HR Care 07/27/18 06:48 Active Cardiac Monitoring [RC] 06,,,18,22,02 Care 07/27/18 05:23 Active Glucose [Blood Glucose Check, Bedside] [RC] Q2H Care 07/27/18 15:00 Active Intake and Output [RC] , Care 07/27/18 05:23 Active Oxygen Therapy [RC] .PRN Care 07/27/18 05:23 Active Up ad Dai [RC] 08,20 Care 07/27/18 05:23 Active VTE/DVT Education [RC] .PRN Care 07/27/18 05:23 Active Vital Signs [RC] 06,,,18,22,02 Care 07/27/18 05:23 Active BASIC METABOLIC PANEL,BMP [CHEM] AM Lab 07/28/18 05:11 Ordered CBC W/O DIFF,HEMOGRAM [HEME] Q3D Lab 07/28/18 07:00 Ordered CBC W/O DIFF,HEMOGRAM [HEME] Q3D Lab 07/31/18 07:00 Ordered CBC W/O DIFF,HEMOGRAM [HEME] Q3D Lab 08/03/18 07:00 Ordered CBC W/O DIFF,HEMOGRAM [HEME] Q3D Lab 08/06/18 07:00 Ordered CBC W/O DIFF,HEMOGRAM [HEME] Q3D Lab 08/09/18 07:00 Ordered CBC W/O DIFF,HEMOGRAM [HEME] Q3D Lab 08/12/18 07:00 Ordered CBC W/O DIFF,HEMOGRAM [HEME] Q3D Lab 08/15/18 07:00 Ordered Enoxaparin [Lovenox] Med 07/27/18 12:00 Active 40 mg SUBCUT DAILY@1200 Gabapentin [Neurontin] Med 07/27/18 20:00 Ordered 300 mg PO TID Insulin NPH/Insulin Reg,Human [HumuLIN 70-30] Med 07/27/18 18:00 Ordered 20 units SQ BIDMEALS Sodium Chloride 0.9% [Saline Flush] Med 07/27/18 03:53 Active 10 ml FLUSH ASDIRECTED PRN Peripheral IV Insertion Adult [OM.PC] Routine Oth 07/27/18 03:54 Ordered Medication Orders Enoxaparin Sodium (Lovenox) 40 mg SUBCUT DAILY@1200 WILFRED Last Admin: 07/27/18 11:38 Dose: 40 mg Gabapentin (Neurontin) 300 mg PO TID [facility] Insulin Aspart (Novolog Mix 70-30) 20 unit SUBCUT BIDMEALS WILFRED Sodium Chloride (Saline Flush) 10 ml FLUSH ASDIRECTED PRN PRN Reason: Keep Vein Open
[2018-07-27] MEDS: Insuln Aspart Prot/Insulin Aspart 100 Units/ML 3 ML FlexPen SUBCUT SCH ×2 (14:33→17:25)
[2018-07-27] MEDS: Gabapentin 300 MG Cap PO SCH (20:32)
[2018-07-27] MEDS: Sodium Chloride 0.9% 10 ML Syringe FLUSH PRN (20:33)
[2018-07-28 07:16] LABS: CHLORIDE,CL 104 mmol/L (98-107); SODIUM,NA 136 mmol/L (136-145)
[2018-07-28 07:18] LABS: ANION GAP 11.1 mmol/L (10-20)
[2018-07-28] MEDS: Gabapentin 300 MG Cap PO SCH ×2 (07:54→11:11)
[2018-07-28] MEDS: Insuln Aspart Prot/Insulin Aspart 100 Units/ML 3 ML FlexPen SUBCUT SCH ×2 (07:55→17:59)
[2018-07-28] MEDS: Sodium Chloride 0.9% 10 ML Syringe FLUSH PRN (07:57)
--- NOTE | 2018-07-28 08:27 | PCM.PN ---
- General Info Date of Service: 07/28/18 Subjective Update: Patient is very tired this morning. He did not sleep well due to q2 hour glucoses overnight. Thus, he has a hard time saying whether his energy level has improved. He denies any abdominal pain. He has been eating well and has had no vomiting or diarrhea. No fever or chills. No other symptoms. - Review of Systems General: Reports: No Symptoms HEENT: Reports: No Symptoms Pulmonary: Reports: No Symptoms Cardiovascular: Reports: No Symptoms Gastrointestinal: Reports: No Symptoms Genitourinary: Reports: No Symptoms Musculoskeletal: Reports: No Symptoms Skin: Reports: No Symptoms - Patient Data Vitals - Most Recent: Last Vital Signs Temp 36.6 C 07/28/18 05:21 Pulse 85 07/28/18 05:21 Resp 16 07/28/18 05:21 BP 140/84 07/28/18 05:21 Pulse Ox 99 07/28/18 05:21 Weight - Most Recent: 102.25 kg I&O - Last 24 Hours: Intake & Output 07/27/18 07/28/18 07/28/18 22:59 06:59 14:59 Intake Total 1925 300 Output Total 600 1200 Balance 1325 -900 Lab Results Last 24 Hours: Laboratory Results - last 24 hr 07/27/18 07/27/18 07/27/18 Range/Units 03:58 09:43 10:55 WBC (4.0-10.0) x10^3/uL RBC (4.5-6.0) x10^6/uL Hgb (14.0-18.0) g/dL Hct (40.0-52.0) % MCV (78.0-93.0) fL MCH (26.0-32.0) pg MCHC (32.0-36.0) g/dL RDW Coeff of Myrna (10.0-15.0) % Plt Count (130-400) x10^3/uL Sodium 136 (136-145) mmol/L Potassium 4.4 (3.5-5.1) mmol/L Chloride 105 (98-107) mmol/L Carbon Dioxide 26 (21-32) mmol/L Anion Gap 9.4 L (10-20) mmol/L BUN 9 (7-18) mg/dL Creatinine 1.0 (0.70-1.30) mg/dL Est Cr Clr Drug Dosing 112.12 mL/min Estimated GFR (MDRD) > 60 Glucose 268 H (74-106) mg/dL POC Glucose 301 H (74-106) mg/dL Hemoglobin A1c 9.0 H (4.5-6.2) % Calcium 9.1 (8.5-10.1) mg/dL Troponin I (<=0.056) ng/mL 07/27/18 07/27/18 07/27/18 Range/Units 10:55 11:12 11:59 WBC (4.0-10.0) x10^3/uL RBC (4.5-6.0) x10^6/uL Hgb (14.0-18.0) g/dL Hct (40.0-52.0) % MCV (78.0-93.0) fL MCH (26.0-32.0) pg MCHC (32.0-36.0) g/dL RDW Coeff of Myrna (10.0-15.0) % Plt Count (130-400) x10^3/uL Sodium (136-145) mmol/L Potassium (3.5-5.1) mmol/L Chloride (98-107) mmol/L Carbon Dioxide (21-32) mmol/L Anion Gap (10-20) mmol/L BUN (7-18) mg/dL Creatinine (0.70-1.30) mg/dL Est Cr Clr Drug Dosing mL/min Estimated GFR (MDRD) Glucose (74-106) mg/dL POC Glucose 232 H 163 H (74-106) mg/dL Hemoglobin A1c (4.5-6.2) % Calcium (8.5-10.1) mg/dL Troponin I < 0.017 (<=0.056) ng/mL 07/27/18 07/27/18 07/27/18 Range/Units 12:59 14:35 17:14 WBC (4.0-10.0) x10^3/uL RBC (4.5-6.0) x10^6/uL Hgb (14.0-18.0) g/dL Hct (40.0-52.0) % MCV (78.0-93.0) fL MCH (26.0-32.0) pg MCHC (32.0-36.0) g/dL RDW Coeff of Myrna (10.0-15.0) % Plt Count (130-400) x10^3/uL Sodium (136-145) mmol/L Potassium (3.5-5.1) mmol/L Chloride (98-107) mmol/L Carbon Dioxide (21-32) mmol/L Anion Gap (10-20) mmol/L BUN (7-18) mg/dL Creatinine (0.70-1.30) mg/dL Est Cr Clr Drug Dosing mL/min Estimated GFR (MDRD) Glucose (74-106) mg/dL POC Glucose 198 H 215 H 202 H (74-106) mg/dL Hemoglobin A1c (4.5-6.2) % Calcium (8.5-10.1) mg/dL Troponin I (<=0.056) ng/mL 07/27/18 07/28/18 07/28/18 Range/Units 18:16 01:08 03:11 WBC (4.0-10.0) x10^3/uL RBC (4.5-6.0) x10^6/uL Hgb (14.0-18.0) g/dL Hct (40.0-52.0) % MCV (78.0-93.0) fL MCH (26.0-32.0) pg MCHC (32.0-36.0) g/dL RDW Coeff of Myrna (10.0-15.0) % Plt Count (130-400) x10^3/uL Sodium (136-145) mmol/L Potassium (3.5-5.1) mmol/L Chloride (98-107) mmol/L Carbon Dioxide (21-32) mmol/L Anion Gap (10-20) mmol/L BUN (7-18) mg/dL Creatinine (0.70-1.30) mg/dL Est Cr Clr Drug Dosing mL/min Estimated GFR (MDRD) Glucose (74-106) mg/dL POC Glucose 240 H 184 H 151 H (74-106) mg/dL Hemoglobin A1c (4.5-6.2) % Calcium (8.5-10.1) mg/dL Troponin I (<=0.056) ng/mL 07/28/18 07/28/18 07/28/18 Range/Units 05:15 06:10 06:10 WBC 10.5 H (4.0-10.0) x10^3/uL RBC 5.71 (4.5-6.0) x10^6/uL Hgb 17.5 (14.0-18.0) g/dL Hct 49.1 (40.0-52.0) % MCV 86.0 (78.0-93.0) fL MCH 30.6 (26.0-32.0) pg MCHC 35.6 (32.0-36.0) g/dL RDW Coeff of Myrna 13.1 (10.0-15.0) % Plt Count 249 (130-400) x10^3/uL Sodium 136 (136-145) mmol/L Potassium 4.1 (3.5-5.1) mmol/L Chloride 104 (98-107) mmol/L Carbon Dioxide 25 (21-32) mmol/L Anion Gap 11.1 (10-20) mmol/L BUN 13 (7-18) mg/dL Creatinine 0.9 (0.70-1.30) mg/dL Est Cr Clr Drug Dosing 124.57 mL/min Estimated GFR (MDRD) > 60 Glucose 233 H (74-106) mg/dL POC Glucose 189 H (74-106) mg/dL Hemoglobin A1c (4.5-6.2) % Calcium 9.0 (8.5-10.1) mg/dL Troponin I (<=0.056) ng/mL 07/28/18 Range/Units 06:40 WBC (4.0-10.0) x10^3/uL RBC (4.5-6.0) x10^6/uL Hgb (14.0-18.0) g/dL Hct (40.0-52.0) % MCV (78.0-93.0) fL MCH (26.0-32.0) pg MCHC (32.0-36.0) g/dL RDW Coeff of Myrna (10.0-15.0) % Plt Count (130-400) x10^3/uL Sodium (136-145) mmol/L Potassium (3.5-5.1) mmol/L Chloride (98-107) mmol/L Carbon Dioxide (21-32) mmol/L Anion Gap (10-20) mmol/L BUN (7-18) mg/dL Creatinine (0.70-1.30) mg/dL Est Cr Clr Drug Dosing mL/min Estimated GFR (MDRD) Glucose (74-106) mg/dL POC Glucose 202 H (74-106) mg/dL Hemoglobin A1c (4.5-6.2) % Calcium (8.5-10.1) mg/dL Troponin I (<=0.056) ng/mL Med Orders - Current: Current Medications Enoxaparin Sodium (Lovenox) 40 mg SUBCUT DAILY@1200 [facility] Last Admin: 07/27/18 11:38 Dose: 40 mg Gabapentin (Neurontin) 300 mg PO TID [facility] Last Admin: 07/28/18 07:54 Dose: 300 mg Insulin Aspart (Novolog Mix 70-30) 20 unit SUBCUT BIDMEALS [facility] Last Admin: 07/28/18 07:55 Dose: 20 units Sodium Chloride (Saline Flush) 10 ml FLUSH ASDIRECTED PRN PRN Reason: Keep Vein Open Last Admin: 07/28/18 07:57 Dose: 10 ml Discontinued Medications Sodium Chloride (Normal Saline) 1,000 mls @ 1,000 mls/hr IV .BOLUS ONE Stop: 07/27/18 04:54 Last Admin: 07/27/18 03:55 Dose: 1,000 mls/hr Insulin Human Regular 100 unit (/ Sodium Chloride) 100 mls @ 10.2 mls/hr IV TITRATE [facility]; Protocol Last Admin: 07/27/18 05:43 Dose: 0.1 units/kg/hr, 10.2 mls/hr Potassium Chloride/Sodium Chloride (Normal Saline With 40 Meq Kcl) 1,000 mls @ 150 mls/hr IV ASDIRECTED [facility]ILFRED Last Admin: 07/27/18 11:43 Dose: 150 mls/hr Insulin Human Regular 100 unit (/ Sodium Chloride) 100 mls @ 5 mls/hr IV TITRATE [facility]FRED; Protocol Last Titration: 07/27/18 12:06 Dose: 2.5 unit/hr, 2.5 mls/hr Insulin Human Regular (Humulin R) 10 unit IVPUSH ONETIME ONE Stop: 07/27/18 03:56 Last Admin: 07/27/18 04:03 Dose: 10 units Ondansetron HCl (Zofran) 4 mg IVPUSH ONETIME ONE Stop: 07/27/18 05:59 Last Admin: 07/27/18 06:24 Dose: 4 mg - Exam General: Alert, Cooperative, No Acute Distress HEENT: Mucous Membr. Moist/[place] Neck: Supple, Trachea Midline, No Thyromegaly. No: Lymphadenopathy Lungs: Clear to Auscultation, Normal Respiratory Effort Cardiovascular: Regular Rate, Regular Rhythm, No Murmurs GI/Abdominal Exam: Normal Bowel Sounds, Soft, Non-Tender, No Organomegaly, No Distention, No Mass Extremities: Non-Tender, No Pedal Edema, Normal Capillary Refill Peripheral Pulses: 2+: Radial (L), Radial (R) Skin: Warm, Dry, Intact - Problem List & Annotations (1) DKA (diabetic ketoacidoses) SNOMED Code(s): 007780399, 312565035 Code(s): E13.10 - OTH DIABETES MELLITUS WITH KETOACIDOSIS WITHOUT COMA Status: Acute Current Visit: Yes Qualifiers: Diabetes mellitus type: type 1 Diabetes mellitus complication detail: without coma Qualified Code(s): E10.10 - Type 1 diabetes mellitus with ketoacidosis without coma (2) Diabetes mellitus SNOMED Code(s): 75406210 Code(s): E11.9 - TYPE 2 DIABETES MELLITUS WITHOUT COMPLICATIONS Status: Chronic Current Visit: Yes Qualifiers: Diabetes mellitus type: type 1 Diabetes mellitus complication status: with neurologic complications Diabetes mellitus complication detail: with polyneuropathy Qualified Code(s): E10.42 - Type 1 diabetes mellitus with diabetic polyneuropathy (3) Elevated blood pressure reading SNOMED Code(s): 29114911 Code(s): R03.0 - ELEVATED BLOOD-PRESSURE READING, W/O DIAGNOSIS OF HTN Status: Acute Current Visit: Yes - Problem List Review Problem List Initiated/Reviewed/Updated: Yes - Assessment Assessment:: 47 yo male admitted with DKA in the setting of poorly controlled type 1 DM. Tired this morning due to glucose checks overnight but otherwise feeling some better. - Plan Plan:: #1 DKA #2 Type I DM - Unclear whether he really met criteria for this diagnosis. Had acidosis but AG technically normal for this lab; no ketones documented. - Regardless, this is now resolved. BMP normal still this am. - Glucoses have been acceptable since transition to his home insulin yesterday afternoon. - Will stop q2 glucoses and do QID glucose checks instead. - For now, continue his home insulin regimen. - Will monitor throughout the day today but anticipate he will be able to dismiss home later today. - He has not chosen a PCP yet but will need to follow-up with someone next week and then decide from there. #3 Elevated blood pressure reading - BP's initially elevated on admission but have come down nicely. - No further intervention now but he will need close outpatient follow-up. Patient admitted to acute status for DKA in the setting of type I DM - anticipate dismissal home later today or tomorrow at the very latest. Continue home insulin dosing. He is on lovenox for VTE prophylaxis. He is full code - was discussed with him by admitting provider.
[2018-07-28] MEDS: Enoxaparin 40 MG/0.4 ML Syringe SUBCUT SCH (11:11)
--- NOTE | 2018-07-28 14:21 | PCM.DCSUM1 ---
Discharge Summary - Hospital Course Brief History: Mr. Mensah is a 47 yo male with uncontrolled type I diabetes who was admitted for mild DKA after presenting to the ER for evaluation of weakness and abdominal discomfort. - Discharge Data Discharge Date: 07/28/18 Discharge Disposition: Home, Self-Care 01 Condition: Good - Discharge Diagnosis/Problem(s) (1) DKA (diabetic ketoacidoses) SNOMED Code(s): 138086637, 809017164 ICD Code: E13.10 - OTH DIABETES MELLITUS WITH KETOACIDOSIS WITHOUT COMA Status: Acute Current Visit: Yes Qualifiers: Diabetes mellitus type: type 1 Diabetes mellitus complication detail: without coma Qualified Code(s): E10.10 - Type 1 diabetes mellitus with ketoacidosis without coma (2) Diabetes mellitus SNOMED Code(s): 87524712 ICD Code: E11.9 - TYPE 2 DIABETES MELLITUS WITHOUT COMPLICATIONS Status: Chronic Current Visit: Yes Qualifiers: Diabetes mellitus type: type 1 Diabetes mellitus complication status: with neurologic complications Diabetes mellitus complication detail: with polyneuropathy Qualified Code(s): E10.42 - Type 1 diabetes mellitus with diabetic polyneuropathy (3) Elevated blood pressure reading SNOMED Code(s): 55881886 ICD Code: R03.0 - ELEVATED BLOOD-PRESSURE READING, W/O DIAGNOSIS OF HTN Status: Acute Current Visit: Yes - Patient Summary/Data Operative Procedure(s) Performed: none Complications: none Consults: none Labs Pending at D/C: none Recommended Follow-up Testing/Procedures: none Planned Operative Procedure(s) after DC: none Hospital Course: The patient was started on IV fluids and an insulin infusion. His labs and glucoses quickly normalized and he was transitioned to his home dosing of subcutaneous insulin around mid-day on 07/27. His glucoses have since been in the upper 100 to lower 200 range. He is feeling somewhat better apart from being tired from not sleeping much related to the glucose checks. As his glucoses were acceptable on his home dosing, it was not felt he would benefit from further remaining in the hospital. He was in agreement with dismissal. He will follow-up next week in clinic and was given a prescription to get his insulin filled at a local pharmacy. He will get his 2nd dose for today here so will either have to get it filled early tomorrow morning or have a family member /friend get it filled for him today. As long as his pre-supper glucose is <250, he will proceed with dismissal. If not, he may need to stay another night. Hospitalization was otherwise complicated by some higher blood pressures initially but that improved. As above, he will follow-up next week in clinic regarding his glucoses and blood pressure. - Patient Instructions Diet: Diabetic Diet Activity: As Tolerated Driving: May Drive Today Showering/Bathing: May Shower - Discharge Plan *PRESCRIPTION DRUG MONITORING PROGRAM REVIEWED*: No *COPY OF PRESCRIPTION DRUG MONITORING REPORT IN PATIENT HARRIS: No Prescriptions/Med Rec: Gabapentin [Neurontin] 300 mg PO TID #90 capsule Insulin NPH/Insulin Reg,Human [HumuLIN 70-30] 20 units SQ BIDMEALS #1 vial Home Medications: Home Meds Gabapentin [Neurontin] 300 mg PO TID #90 capsule 07/28/18 [Rx] Insulin NPH/Insulin Reg,Human [HumuLIN 70-30] 20 units SQ BIDMEALS #1 vial 07/28 [Rx] Forms: ED Department Discharge Referrals: PCP,Unknown [Primary Care Provider] - - Discharge Summary/Plan Comment DC Time >30 min.: No - General Info Date of Service: 07/28/18 Subjective Update: Uneventful day today. Feeling comfortable with going home as long as supper glucose is ok. Needs prescriptions sent to [facility]. - Patient Data Vitals - Most Recent: Last Vital Signs Temp 36.4 C 07/28/18 11:08 Pulse 80 07/28/18 11:08 Resp 16 07/28/18 11:08 BP 130/91 H 07/28/18 11:08 Pulse Ox 97 07/28/18 11:08 Weight - Most Recent: 102.25 kg I&O - Last 24 hours: Intake & Output 07/27/18 07/28/18 07/28/18 22:59 06:59 14:59 Intake Total 1925 300 80 Output Total 600 1200 450 Balance 1325 -900 -370 Lab Results - Last 24 hrs: Laboratory Results - last 24 hr 07/27/18 07/27/18 07/27/18 Range/Units 03:58 14:35 17:14 WBC (4.0-10.0) x10^3/uL RBC (4.5-6.0) x10^6/uL Hgb (14.0-18.0) g/dL Hct (40.0-52.0) % MCV (78.0-93.0) fL MCH (26.0-32.0) pg MCHC (32.0-36.0) g/dL RDW Coeff of Myrna (10.0-15.0) % Plt Count (130-400) x10^3/uL Sodium (136-145) mmol/L Potassium (3.5-5.1) mmol/L Chloride (98-107) mmol/L Carbon Dioxide (21-32) mmol/L Anion Gap (10-20) mmol/L BUN (7-18) mg/dL Creatinine (0.70-1.30) mg/dL Est Cr Clr Drug Dosing mL/min Estimated GFR (MDRD) Glucose (74-106) mg/dL POC Glucose 215 H 202 H (74-106) mg/dL Hemoglobin A1c 9.0 H (4.5-6.2) % Calcium (8.5-10.1) mg/dL 07/27/18 07/28/18 07/28/18 Range/Units 18:16 01:08 03:11 WBC (4.0-10.0) x10^3/uL RBC (4.5-6.0) x10^6/uL Hgb (14.0-18.0) g/dL Hct (40.0-52.0) % MCV (78.0-93.0) fL MCH (26.0-32.0) pg MCHC (32.0-36.0) g/dL RDW Coeff of Myrna (10.0-15.0) % Plt Count (130-400) x10^3/uL Sodium (136-145) mmol/L Potassium (3.5-5.1) mmol/L Chloride (98-107) mmol/L Carbon Dioxide (21-32) mmol/L Anion Gap (10-20) mmol/L BUN (7-18) mg/dL Creatinine (0.70-1.30) mg/dL Est Cr Clr Drug Dosing mL/min Estimated GFR (MDRD) Glucose (74-106) mg/dL POC Glucose 240 H 184 H 151 H (74-106) mg/dL Hemoglobin A1c (4.5-6.2) % Calcium (8.5-10.1) mg/dL 07/28/18 07/28/18 07/28/18 Range/Units 05:15 06:10 06:10 WBC 10.5 H (4.0-10.0) x10^3/uL RBC 5.71 (4.5-6.0) x10^6/uL Hgb 17.5 (14.0-18.0) g/dL Hct 49.1 (40.0-52.0) % MCV 86.0 (78.0-93.0) fL MCH 30.6 (26.0-32.0) pg MCHC 35.6 (32.0-36.0) g/dL RDW Coeff of Myrna 13.1 (10.0-15.0) % Plt Count 249 (130-400) x10^3/uL Sodium 136 (136-145) mmol/L Potassium 4.1 (3.5-5.1) mmol/L Chloride 104 (98-107) mmol/L Carbon Dioxide 25 (21-32) mmol/L Anion Gap 11.1 (10-20) mmol/L BUN 13 (7-18) mg/dL Creatinine 0.9 (0.70-1.30) mg/dL Est Cr Clr Drug Dosing 124.57 mL/min Estimated GFR (MDRD) > 60 Glucose 233 H (74-106) mg/dL POC Glucose 189 H (74-106) mg/dL Hemoglobin A1c (4.5-6.2) % Calcium 9.0 (8.5-10.1) mg/dL 07/28/18 07/28/18 Range/Units 06:40 11:11 WBC (4.0-10.0) x10^3/uL RBC (4.5-6.0) x10^6/uL Hgb (14.0-18.0) g/dL Hct (40.0-52.0) % MCV (78.0-93.0) fL MCH (26.0-32.0) pg MCHC (32.0-36.0) g/dL RDW Coeff of Myrna (10.0-15.0) % Plt Count (130-400) x10^3/uL Sodium (136-145) mmol/L Potassium (3.5-5.1) mmol/L Chloride (98-107) mmol/L Carbon Dioxide (21-32) mmol/L Anion Gap (10-20) mmol/L BUN (7-18) mg/dL Creatinine (0.70-1.30) mg/dL Est Cr Clr Drug Dosing mL/min Estimated GFR (MDRD) Glucose (74-106) mg/dL POC Glucose 202 H 197 H (74-106) mg/dL Hemoglobin A1c (4.5-6.2) % Calcium (8.5-10.1) mg/dL Med Orders - Current: Current Medications Enoxaparin Sodium (Lovenox) 40 mg SUBCUT DAILY@1200 [facility]FRED Last Admin: 07/28/18 11:11 Dose: 40 mg Gabapentin (Neurontin) 300 mg PO TID [facility]ED Last Admin: 07/28/18 11:11 Dose: 300 mg Insulin Aspart (Novolog Mix 70-30) 20 unit SUBCUT BIDMEALS [facility] Last Admin: 07/28/18 07:55 Dose: 20 units Sodium Chloride (Saline Flush) 10 ml FLUSH ASDIRECTED PRN PRN Reason: Keep Vein Open Last Admin: 07/28/18 07:57 Dose: 10 ml Discontinued Medications Sodium Chloride (Normal Saline) 1,000 mls @ 1,000 mls/hr IV .BOLUS ONE Stop: 07/27/18 04:54 Last Admin: 07/27/18 03:55 Dose: 1,000 mls/hr Insulin Human Regular 100 unit (/ Sodium Chloride) 100 mls @ 10.2 mls/hr IV TITRATE [facility]ILFRED; Protocol Last Admin: 07/27/18 05:43 Dose: 0.1 units/kg/hr, 10.2 mls/hr Potassium Chloride/Sodium Chloride (Normal Saline With 40 Meq Kcl) 1,000 mls @ 150 mls/hr IV ASDIRECTED [facility]ILFRED Last Admin: 07/27/18 11:43 Dose: 150 mls/hr Insulin Human Regular 100 unit (/ Sodium Chloride) 100 mls @ 5 mls/hr IV TITRATE [facility]ILFRED; Protocol Last Titration: 07/27/18 12:06 Dose: 2.5 unit/hr, 2.5 mls/hr Insulin Human Regular (Humulin R) 10 unit IVPUSH ONETIME ONE Stop: 07/27/18 03:56 Last Admin: 07/27/18 04:03 Dose: 10 units Ondansetron HCl (Zofran) 4 mg IVPUSH ONETIME ONE Stop: 07/27/18 05:59 Last Admin: 07/27/18 06:24 Dose: 4 mg
--- NOTE | 2018-07-28 15:25 | PCM.SN ---
- Free Text/Narrative Note: Contacted by nursing due to episode of tachycardia on telemetry. Patient feeling fine and denies any chest pain or shortness of breath. Strip reviewed and consistent with sinus tachycardia. EKG also done and unremarkable. No change to the plan previously outlined apart from we will d/c telemetry.
== END 2018-07-28 19:30 | disposition home or self-care (01) | DRG 639 ==
LOC: VM.ED 03:18 → VM.MS 05:06 → UNDOADMIN 05:12 → VM.MS 05:12
PROVIDERS: ADMIT Family Medicine; ATTEND Family Medicine
DX: E10.10 Type 1 diabetes mellitus with ketoacidosis without coma (principal); F17.210 Nicotine dependence, cigarettes, uncomplicated; E78.00 Pure hypercholesterolemia, unspecified; R00.0 Tachycardia, unspecified; R03.0 Elevated blood-pressure reading, without diagnosis of hypertension; E10.42 Type 1 diabetes mellitus with diabetic polyneuropathy; Z79.4 Long term (current) use of insulin; I25.2 Old myocardial infarction; Z79.899 Other long term (current) drug therapy
CPT/HCPCS: 36415; 36600; 80048; 80053; 80305-QW; 81001; 82803; 82962; 83036; 83605; 83735; 84100; 84484; 85025; 85027; 85610; 86140; 93005; 96361; 96365; 96368; 96376; 99285; A9270-GY; J1650; J1815-GY; J2405; J3480; J7030; J7050